=== PATIENT | male | born 1955 | race Caucasian/White ===

== ENCOUNTER 2016-12-23 13:04 | Observation (INO) | payer OTHER ==
[2016-12-23 14:12] LABS: HEMOGLOBIN 9.9 gm/dl (14.0-17.5); RED BLOOD COUNT 4.69 M/UL (4.20-5.50); WHITE BLOOD COUNT 8.8 K/UL (4.5-11.0)
[2016-12-23 14:49] LABS: BUN/CREATININE RATIO 9 (0-10)
[2016-12-23] MEDS ORDERED: ALLEGRA-D 12 H1 EACH PO (22:52)
[2016-12-23] MEDS ORDERED: PROVENTIL HFA 61 INH INH (22:52)
[2016-12-23] MEDS ORDERED: BENTYL 20MG TAB20 MG PO (22:53)
[2016-12-23] MEDS ORDERED: COUMADIN5 MG PO (22:54)
[2016-12-23] MEDS ORDERED: VITAMIN B-1000 MCG/M IM (22:56)
[2016-12-23] MEDS ORDERED: MOBIC15 MG PO (22:57)
[2016-12-23] MEDS ORDERED: MAXZIDE 37.5 M1 EACH PO (22:57)
[2016-12-23] MEDS ORDERED: METOPROLOL TART25 MG PO (22:57)
[2016-12-23] MEDS ORDERED: NORCO 10-325 T1 EACH PO (22:58)
[2016-12-23] MEDS ORDERED: OXYCODONE HCL10 MG PO (22:59)
[2016-12-23] MEDS ORDERED: PROTONIX40 MG PO (23:00)
[2016-12-23] MEDS ORDERED: PAXIL 20 MG TAB20 MG PO (23:00)
[2016-12-23] MEDS ORDERED: ALPRAZOLAM0.5 MG PO (23:01)
[2016-12-23] MEDS ORDERED: ZOCOR40 MG PO (23:05)
--- NOTE | 2016-12-24 03:08 | NUR ---
AT 0213 PATIENT WENT OUTSIDE TO SMOKE. HE WAS WARNED OF THE RISKS OF LEAVING THE FLOOR BY CLAYTON MCCOY RN, MASSIEL CARRION RN, AND RESPIRATORY THERAPY. HE TOOK THE RISK ANYWAY. HE RETURNED AT 0240. ASSESSED BREATHING AND IT WAS THE SAME ON ADMITTANCE. HE DENIED ANY DIZZINESS OR LIGHTHEADEDNESS WHILE OFF THE FLOOR.
[2016-12-24 07:38] LABS: HEMOGLOBIN 10.3 gm/dl (14.0-17.5); RED BLOOD COUNT 4.96 M/UL (4.20-5.50); WHITE BLOOD COUNT 9.4 K/UL (4.5-11.0)
[2016-12-24 08:06] LABS: BUN/CREATININE RATIO 10 (0-10)
== END 2016-12-24 18:00 | disposition home or self-care (01) ==
LOC: ER1 13:04 → ZEROF 22:28 → M/S 22:28
PROVIDERS: Emergency Medicine; ADMIT Hospitalist
DX: R55 Syncope and collapse (principal); S00.83XA Contusion of other part of head, initial encounter; I25.10 Atherosclerotic heart disease of native coronary artery without angina pectoris; I10 Essential (primary) hypertension; E78.5 Hyperlipidemia, unspecified; G89.29 Other chronic pain; F41.9 Anxiety disorder, unspecified; M19.90 Unspecified osteoarthritis, unspecified site; E11.9 Type 2 diabetes mellitus without complications; Z95.5 Presence of coronary angioplasty implant and graft; F17.210 Nicotine dependence, cigarettes, uncomplicated; Z86.711 Personal history of pulmonary embolism; Z79.01 Long term (current) use of anticoagulants; X58.XXXA Exposure to other specified factors, initial encounter; Z82.49 Family history of ischemic heart disease and other diseases of the circulatory system; Z79.891 Long term (current) use of opiate analgesic; Z79.899 Other long term (current) drug therapy
CPT/HCPCS: ECHO; 36415; 70450; 71010; 72125; 73110; 80048; 80053; 80061; 81001; 82550; 82553; 82728; 83036; 83540; 83550; 83690; 83874; 83880; 84443; 84484; 85025; 85610; 85730; 87086; 93005; 93306; 96374; 96375; 96376; 99285; G0378; J2270; J2405; J3420